=== PATIENT | female | born 1940 | race Caucasian/White ===

== ENCOUNTER 2019-04-08 02:55 | Inpatient (IN) | payer OTHER, MEDICAID ==
[~2019-04-08] VITALS: Ht 167.6 cm; Wt 68.9 kg
[2019-04-08 05:06] LABS: Basophils # (auto) 0.1 uL; Basophils % (auto) 1.1 % (0.0-2.0); Eosinophils # (auto) 0.2 uL; Eosinophils % (auto) 3.4 % (0.0-7.0); Hematocrit 42.2 % (36.0-46.0); Hemoglobin 14.3 g/dL (12.2-16.2); Lymphocytes % (auto) 15.5 % (10.0-50.0); Mean Corpuscular Hemoglobin 30.2 pg (28.0-32.0); Mean Corpuscular Hgb Conc. 33.8 g/dL (32.0-36.0); Mean Corpuscular Volume 89.5 fL (80.0-100.0); Monocytes # (auto) 0.5 uL; Neutrophils # (auto) 4.8 uL; Platelet Count (auto) 178 10^3/uL (140-450); Red Blood Cells 4.72 10^6/uL (4.0-5.20); Red Cell Distribution Width 13.5 % (11.8-14.3); White Blood Cell 6.6 10^3/uL (4.4-10.8)
[2019-04-08 05:17] LABS: Albumin 3.3 g/dL (3.4-5.0); BUN/Creatinine Ratio 14.9; Calcium 9.2 mg/dL (8.5-10.1); Potassium 3.8 mmol/L (3.5-5.1)
[2019-04-08 05:18] LABS: Bilirubin, Total 0.8 mg/dL (0.2-1.0); Total Protein 6.6 g/dL (6.4-8.2)
[2019-04-08 05:57] LABS: Amphetamine Screen, Urine NEGATIVE (NEGATIVE); Barbiturate Scree,Urine NEGATIVE (NEGATIVE); Benzodiazephine Screen, Urine NEGATIVE (NEGATIVE); Cannabinoid Screen, Urine NEGATIVE (NEGATIVE); Cocaine Screen, Urine NEGATIVE (NEGATIVE)
[2019-04-08 06:03] LABS: Alcohol, Urine < 3.0 mg/dL (0-5); Opiate Scree,Urine NEGATIVE (NEGATIVE); Phencyclidine Screen, Urine NEGATIVE (NEGATIVE); Urine Bacteria FEW /hpf (None Seen); Urine Blood TRACE /uL (Negative); Urine Hyaline Cast FEW /lpf (0 - 2); Urine Mucus FEW (None Seen); Urine Specific Gravity 1.014 (1.001-1.035); Urine WBC 4 /hpf (0 - 5)
[2019-04-08 06:37] LABS: INR 0.95 (0.9-1.15); Partial Thromboplastin Time 26.1 sec (23.64-32.05)
[2019-04-08] MEDS ORDERED: LORazepam 2MG/ML-1ML VIAL IV PRN ×2 (07:30→20:30)
[2019-04-08] MEDS ORDERED: HYDROcodone-ACET 5/325MG TAB PO PRN (07:30)
[2019-04-08] MEDS ORDERED: DOCUSATE SOD 100 MG CAP PO PRN (07:30)
[2019-04-08] MEDS ORDERED: ACETAMINOPHEN 500 MG TAB PO PRN (07:30)
[2019-04-08] MEDS ORDERED: ONDANSETRON HCL 4 MG/2 ML VIAL IV PRN (07:30)
[2019-04-08] MEDS ORDERED: ALBUTEROL SULF 2.5 MG/0.5ML(0.5%) NEB SOLN NEB PRN (07:45)
--- NOTE | 2019-04-08 09:01 | NUR ---
Telemetry admit from ER ANA HOFF YESSY admitted to Telemetry unit after SBAR received. Patient oriented to Reina Poole, primary RN, unit, room, bed, and unit policies regarding patient care and visiting hours. Patient now on continuous telemetry monitoring, tele box # 7 and telemetry reading on arrival to unit is [id number]. Patient placed on bedside oxygen, weighed by bedscale and encouraged to call if they need something. All questions and concerns addressed, patient verbalized understanding.
[2019-04-08] MEDS ORDERED: METO25TA62 PO (09:25)
[2019-04-08] MEDS ORDERED: ASPI-378 PO (09:25)
[2019-04-08] MEDS ORDERED: IBUP600T27 PO (09:25)
[2019-04-08] MEDS ORDERED: BUSP5TAB51 PO (09:25)
[2019-04-08] MEDS ORDERED: FAM20T PO (09:25)
[2019-04-08] MEDS ORDERED: CHOL20007 PO (09:25)
[2019-04-08] MEDS ORDERED: IRBE300T46 PO (09:25)
[2019-04-08] MEDS ORDERED: ISOS30TA4 PO (09:25)
[2019-04-08] MEDS ORDERED: busPIRone HCL 10 MG TAB PO SCH ×3 (10:00→22:00)
[2019-04-08] MEDS: FAMOTIDINE 20 MG TAB PO SCH ×2 (10:00→22:00)
--- NOTE | 2019-04-08 10:20 | NUR ---
Respiratory note: PT ASSESSED FOR PRN MED NEB TX. TX IS NOT INDICATED AT THIS TIME. PT IS BREATHING COMFORTABLY ON RA. NO SOB NOTED. RR 14, POX 96%, HR 68. B/S ARE CLEAR THROUGHOUT.
[2019-04-08] MEDS: ASPirin-EC 81 mg tab PO SCH (10:21)
[2019-04-08 10:22] VITALS: BP 140/71
[2019-04-08] MEDS: METOPROLOL SUCCINATE XL 50 MG TAB PO SCH ×2 (10:22→22:00)
[2019-04-08 10:25] VITALS: BP 165/66
[2019-04-08] MEDS ORDERED: INFLUENZA QUAD 2019-2020 0.5ml SYRG IM ONE (11:30)
[2019-04-08 17:59] VITALS: BP 167/78
--- NOTE | 2019-04-08 18:00 | NUR ---
BP-194/86 repeated after 15 minutes BP-167/78, paged adoption services manager hospitalist. Waiting for call back. Will continue to monitor.
--- NOTE | 2019-04-08 18:08 | NUR ---
weight caller hospitalist Dr. Garcia returned call, updated on the current condition and latest BP of the patient. Orders received.
[2019-04-08] MEDS: LABETALOL HCL 5 MG/ML ML 20ML VIAL IV PRN ×3 (18:23→23:04)
--- NOTE | 2019-04-08 18:49 | NUR ---
Respiratory note: NO PRN TX GIVEN AT THIS TIME, NOT INDICATED. PT AWAKE AND ALERT, VISITOR AT BEDSIDE. NO SOB NOTED. SPO2 95%, HR 74, RR 18.
--- NOTE | 2019-04-08 19:20 | NUR ---
PATIENT IS ALERT AND ORIENTED X4. SHE IS SITTING UP IN BED, BED RAILS ARE UP>30 DEGREES AND ARE PADDED FOR SEIZURE PRECAUTIONS. PATIENTS SPEECH IS CLEAR. PATIENT DENIES PAIN AT THIS TIME. BEDSIDE TABLE WITHIN REACH, CALL LIGHT WITHIN REACH, PERSONAL BELONGINGS WITHIN REACH. DISCUSSED POC WITH PATIENT AND SON. ALL CONCERNS ADDRESSED. WILL CONTINUE TO MONITOR Q1H AND PRN. BLOOD PRESSURE 153/64 HR 72.
[2019-04-08 20:00] VITALS: BP 157/79
--- NOTE | 2019-04-08 20:00 | NUR ---
KEON ANSARI AT BEDSIDE.
[2019-04-08] MEDS ORDERED: LORazepam 0.5 MG TAB PO PRN (20:30)
[2019-04-08 22:00] VITALS: BP 157/79
--- NOTE | 2019-04-08 23:50 | NUR ---
CONFUSION PATIENT OUT OF BED WALKING TO NURSE'S STATION. CONFUSED. PATIENT CANNOT RECALL WHERE SHE IS AT. PATIENT ASKING "WHAT HAPPENED?" " WHY AM I HERE?" "I WORK HERE". GAIT IS STEADY AT THIS TIME. ASSISTED PATIENT BACK INTO BED, REORIENTED. PATIENT REMAINS CONFUSED. FALL PRECAUTIONS IN PLACE. BED ALARM ON. PATIENT ROOM IS ACROSS FROM FROM NURSING STATION.
[2019-04-09 05:04] VITALS: BP 158/73
--- NOTE | 2019-04-09 05:20 | NUR ---
LAB AT BEDSIDE
[2019-04-09] MEDS: LABETALOL HCL 5 MG/ML ML 20ML VIAL IV PRN (05:26)
[2019-04-09 06:29] LABS: Basophils # (auto) 0.1 uL; Basophils % (auto) 1.1 % (0.0-2.0); Eosinophils # (auto) 0.1 uL; Eosinophils % (auto) 0.9 % (0.0-7.0); Hematocrit 43.9 % (36.0-46.0); Hemoglobin 14.9 g/dL (12.2-16.2); Lymphocytes # (auto) 1.1 uL; Lymphocytes % (auto) 17.4 % (10.0-50.0); Mean Corpuscular Hemoglobin 30.2 pg (28.0-32.0); Mean Corpuscular Volume 88.9 fL (80.0-100.0); Monocytes # (auto) 0.3 uL; Monocytes % (auto) 5.1 % (0.0-12.0); Neutrophils # (auto) 4.6 uL; Neutrophils % (auto) 75.5 % (37.0-80.0); Platelet Count (auto) 196 10^3/uL (140-450); Red Blood Cells 4.94 10^6/uL (4.0-5.20); Red Cell Distribution Width 13.1 % (11.8-14.3); White Blood Cell 6.1 10^3/uL (4.4-10.8)
--- NOTE | 2019-04-09 07:10 | NUR ---
CLOSING NOTE- NOC SHIFT PATIENT IS ALERT AND ORIENTED X4. PATIENT RECALLS SPEAKING WITH DR HERBERT LAST NIGHT AND REMEMBERS PROCEDURES SCHEDULED FOR TODAY. PATIENT STATES THAT SHE WANTS TO DC EARLY IN THE DAY AND FOLLOW UP WITH HER OWN DOCTOR SO THAT HER FAMILY CAN GET BACK HOME TO [place] WHERE SHE IS FROM. ENDORSED CARE TO DAY SHIFT NURSE CAYETANO BONILLA.
--- NOTE | 2019-04-09 07:25 | NUR ---
Respiratory note: PT DOES NOT PRESENT WITH ANY SIGNS OF RESPIRATORY DISTRESS AT THIS TIME. SPO2 94% ON RA HR 84 RR 16 BS CLEAR HHN TX NOT INDICATED AT THIS TIME. WILL CONTINUE TO MONITOR.
--- NOTE | 2019-04-09 07:35 | NUR ---
NEUROLOGY AT BEDSIDE PATIENT ALERT AND ORIENTED X3 FAMILY AT BEDSIDE. PER DELLA IF MRI RESULTS NEGATIVE PATIENT FREE TO BE DISCHARGED HOME AND HE WILL CALL SON FOR EEG RESULTS. SONS PHONE NUMBER IN CHART ON FACE SHEET
[2019-04-09 08:04] LABS: BUN/Creatinine Ratio 22.4; Calcium 9.4 mg/dL (8.5-10.1); Potassium 4.2 mmol/L (3.5-5.1)
--- NOTE | 2019-04-09 08:25 | NUR ---
EEG COMPLETED AT BEDSIDE. CHAD CERNA.
[2019-04-09 09:00] VITALS: BP 160/77
[2019-04-09 09:23] LABS: Folate (Folic Acid) > 24.00 ng/mL (5.38-24)
[2019-04-09] MEDS: FAMOTIDINE 20 MG TAB PO SCH (09:30)
[2019-04-09] MEDS: ASPirin-EC 81 mg tab PO SCH (09:30)
[2019-04-09] MEDS: METOPROLOL SUCCINATE XL 50 MG TAB PO SCH (09:31)
[2019-04-09] MEDS ORDERED: busPIRone HCL 10 MG TAB PO SCH (10:00)
[2019-04-09 11:46] VITALS: BP 160/77
--- NOTE | 2019-04-09 12:23 | NUR ---
DISCHARGE NOTE PATIENT ALERT AND ORIENTED X4 AT THIS TIME AND FAMILY AT BEDSIDE. ALL DISCHARGE INSTRUCTIONS GIVEN ALL QUESTIONS/ CONCERNS ADDRESSED. PATIENT DENIES ANY PAIN, SOB OR ANY DISTRESS AT THIS TIME. TELE BOX REMOVED CLEANED AND SENT TO ICU. IV REMOVED USING ASEPTIC TECHNIQUE CATHETER INTACT PRESSURE DRESSING APPLIED PATIENT TOLERATED WELL. PATIENT ASSISTED TO PERSONAL VEHICLE USING WHEELCHAIR.
== END 2019-04-09 15:06 | disposition home or self-care (01) | DRG 100 ==
LOC: EDBD 02:55 → ER 03:05 → TELE 03:06 → TELE-EAST 09:01
PROVIDERS: ADMIT Nurse Practitioner Family; ATTEND Internal Medicine
DX: G40.409 Other generalized epilepsy and epileptic syndromes, not intractable, without status epilepticus (principal); G93.41 Metabolic encephalopathy; E44.1 Mild protein-calorie malnutrition; I10 Essential (primary) hypertension; I25.10 Atherosclerotic heart disease of native coronary artery without angina pectoris; E11.9 Type 2 diabetes mellitus without complications; E78.5 Hyperlipidemia, unspecified; F02.80 Dementia in other diseases classified elsewhere, unspecified severity, without behavioral disturbance, psychotic disturbance, mood disturbance, and anxiety; F41.9 Anxiety disorder, unspecified; G30.9 Alzheimer's disease, unspecified; H53.2 Diplopia; J44.9 Chronic obstructive pulmonary disease, unspecified; Z79.899 Other long term (current) drug therapy; Z83.3 Family history of diabetes mellitus; Z87.891 Personal history of nicotine dependence; Z90.710 Acquired absence of both cervix and uterus; Z95.5 Presence of coronary angioplasty implant and graft; Z90.49 Acquired absence of other specified parts of digestive tract; Z68.24 Body mass index [BMI] 24.0-24.9, adult
CPT/HCPCS: 36415; 70450; 70551; 80048; 80053; 80307; 81001; 82607; 82746; 84443; 85025; 85610; 85730; 93005; 94761; 95819; G0378

== ENCOUNTER 2023-04-25 08:35 | Inpatient (IN) | payer OTHER, MEDICAID ==
[~2023-04-25] VITALS: Ht 167.6 cm; Wt 72.2 kg
[~2023-04-25 08:35] MED LIST: ASPI-378 PO; BUSP5TAB51 PO; CHOL20007 PO; FAMO20TA10 PO; IBUP-1454 PO; IRBE300T43 PO; ISOS1TAB28 PO; METO25TA93 PO
[2023-04-25] MEDS ORDERED: PANTOPRAZOLE 40mg/50ML NS AE 50 ML IV ONE (09:15)
[2023-04-25 09:53] LABS: Basophils # (auto) 0.1 10 ^3/uL (0-0.2); Basophils % (auto) 1.3 % (0.0-2.0); Eosinophils # (auto) 0.3 10 ^3/uL (0-0.8); Eosinophils % (auto) 5.1 % (0.0-7.0); Hematocrit 41.7 % (36.0-46.0); Hemoglobin 13.8 g/dL (12.2-16.2); Lymphocytes # (auto) 1.5 10 ^3/uL (0.4-5.4); Lymphocytes % (auto) 22.4 % (10.0-50.0); Mean Corpuscular Hemoglobin 29.5 pg (28.0-32.0); Mean Corpuscular Hgb Conc. 33.2 g/dL (32.0-36.0); Mean Corpuscular Volume 88.9 fL (80.0-100.0); Monocytes # (auto) 0.6 10 ^3/uL (0-1.3); Monocytes % (auto) 8.4 % (0.0-12.0); Neutrophils # (auto) 4.3 10 ^3/uL (1.6-8.6); Neutrophils % (auto) 62.8 % (37.0-80.0); Red Blood Cells 4.68 10^6/uL (4.0-5.20); White Blood Cell 6.8 10^3/uL (4.4-10.8)
[2023-04-25 10:35] LABS: Alanine Aminotransferase 21 U/L (7-40); Albumin 4.1 g/dL (3.2-4.8); Alkaline Phosphatase 58 U/L (46-116); Anion Gap 8 (5-15); Aspartate Aminotransferase 13 U/L (13-40); BUN/Creatinine Ratio 15.3 (10.0-20.0); Bilirubin, Total 0.8 mg/dL (0.2-1.0); Blood Urea Nitrogen 11 mg/dL (9-23); Calcium 9.7 mg/dL (8.5-10.1); Carbon Dioxide 24 mmol/L (20-30); Chloride 106 mmol/L (98-107); Glucose 172 mg/dL (74-106); Potassium 4.2 mmol/L (3.5-5.1); Sodium 138 mmol/L (136-145); Total Protein 6.6 g/dL (5.7-8.2)
[2023-04-25 10:54] LABS: INR 0.96 (0.9-1.15); Prothrombin Time 10.1 sec (9.3-11.8)
[2023-04-25] MEDS ORDERED: SODIUM CHLORIDE 0.9% 1,000 ML IV ONE (12:00)
[2023-04-25] MEDS ORDERED: PIPERACILLIN-TAZOB 3.375GM 100 ML IV ONE (12:00)
[2023-04-25 12:12] LABS: Magnesium 1.8 mg/dL (1.6-2.6)
[2023-04-25] MEDS ORDERED: MORPHINE SULFATE INJ 2 MG/ml SYRG IV PRN (13:00)
[2023-04-25] MEDS ORDERED: NITROGLYCERIN 0.4 MG SL TAB SL PRN (13:00)
[2023-04-25 13:34] LABS: Basophils # (auto) 0.1 10 ^3/uL (0-0.2); Basophils % (auto) 1.3 % (0.0-2.0); Eosinophils # (auto) 0.2 10 ^3/uL (0-0.8); Eosinophils % (auto) 2.8 % (0.0-7.0); Hematocrit 43.4 % (36.0-46.0); Hemoglobin 14.2 g/dL (12.2-16.2); Lymphocytes # (auto) 2.1 10 ^3/uL (0.4-5.4); Lymphocytes % (auto) 24.2 % (10.0-50.0); Mean Corpuscular Hemoglobin 29.8 pg (28.0-32.0); Mean Corpuscular Hgb Conc. 32.8 g/dL (32.0-36.0); Mean Corpuscular Volume 90.8 fL (80.0-100.0); Monocytes # (auto) 0.7 10 ^3/uL (0-1.3); Monocytes % (auto) 8.2 % (0.0-12.0); Neutrophils # (auto) 5.4 10 ^3/uL (1.6-8.6); Neutrophils % (auto) 63.5 % (37.0-80.0); Nucleated Red Blood Cells % 0.2 %; Red Blood Cells 4.78 10^6/uL (4.0-5.20); Red Cell Distribution Width 13.2 % (11.8-14.3); White Blood Cell 8.5 10^3/uL (4.4-10.8)
[2023-04-25 13:41] LABS: Chloride 106 mmol/L (98-107); Potassium 4.2 mmol/L (3.5-5.1); Sodium 138 mmol/L (136-145)
[2023-04-25 13:42] LABS: Anion Gap 9 (5-15); Carbon Dioxide 23 mmol/L (20-30)
[2023-04-25 13:43] LABS: Calcium 9.8 mg/dL (8.7-10.4)
[2023-04-25 13:47] LABS: BUN/Creatinine Ratio 17.1 (10.0-20.0); Blood Urea Nitrogen 12 mg/dL (9-23); Glucose 146 mg/dL (74-106)
[2023-04-25 13:48] LABS: Magnesium 1.9 mg/dL (1.6-2.6)
[2023-04-25 14:20] VITALS: PULSE 88; RESP 18; O2SAT 99
[2023-04-25] MEDS: metroNIDAZOLE 500MG/100ML 100 ML IV ONE ×2 (14:26→15:06)
[2023-04-25] MEDS ORDERED: hydrALAZINE HCL 20 MG/ML VL IV PRN (19:30)
[2023-04-25 23:53] VITALS: BP 173/68; PULSE 85; RESP 20; TEMP 97.5; O2SAT 98
[2023-04-26] MEDS: metroNIDAZOLE 500MG/100ML 100 ML IV SCH ×4 (00:09→21:30)
[2023-04-26] MEDS: PANTOPRAZOLE 40 MG/10 ML VIAL INJ IV SCH ×3 (00:14→21:30)
[2023-04-26 01:03] VITALS: BP 126/64; O2SAT 96
[2023-04-26 05:00] VITALS: BP 139/62; PULSE 98; RESP 19; TEMP 97.7; O2SAT 97
[2023-04-26 07:51] LABS: Anion Gap 10 (5-15); Calcium 9.2 mg/dL (8.5-10.1); Carbon Dioxide 24 mmol/L (20-30); Chloride 106 mmol/L (98-107); Potassium 4.2 mmol/L (3.5-5.1); Sodium 140 mmol/L (136-145)
[2023-04-26 07:56] LABS: Glucose 165 mg/dL (74-106)
[2023-04-26 07:57] LABS: BUN/Creatinine Ratio 29.3 (10.0-20.0); Blood Urea Nitrogen 17 mg/dL (9-23); LDL Cholesterol 84 mg/dL (< 100); Triglycerides 134 mg/dL (< 150)
[2023-04-26 07:58] LABS: Cholesterol 176 mg/dL (< 200)
[2023-04-26 07:59] LABS: HDL Cholesterol 69 mg/dL (40-59)
[2023-04-26 08:00] VITALS: BP 145/56; PULSE 96; RESP 20; TEMP 98.2; O2SAT 98
[2023-04-26 08:41] LABS: Basophils # (auto) 0.1 10 ^3/uL (0-0.2); Basophils % (auto) 0.9 % (0.0-2.0); Eosinophils # (auto) 0.1 10 ^3/uL (0-0.8); Eosinophils % (auto) 0.9 % (0.0-7.0); Hematocrit 38.2 % (36.0-46.0); Hemoglobin 12.9 g/dL (12.2-16.2); Lymphocytes # (auto) 1.3 10 ^3/uL (0.4-5.4); Lymphocytes % (auto) 17.9 % (10.0-50.0); Mean Corpuscular Hemoglobin 30.3 pg (28.0-32.0); Mean Corpuscular Hgb Conc. 33.7 g/dL (32.0-36.0); Mean Corpuscular Volume 89.8 fL (80.0-100.0); Monocytes # (auto) 0.5 10 ^3/uL (0-1.3); Monocytes % (auto) 6.6 % (0.0-12.0); Neutrophils # (auto) 5.2 10 ^3/uL (1.6-8.6); Neutrophils % (auto) 73.7 % (37.0-80.0); Nucleated Red Blood Cells % 0.1 %; Red Blood Cells 4.26 10^6/uL (4.0-5.20)
[2023-04-26] MEDS: cefTRIAXone 1GM/50ML D5W 50 ML IV SCH (08:48)
[2023-04-26 09:12] LABS: Magnesium 1.5 mg/dL (1.6-2.6)
[2023-04-26 12:00] VITALS: BP 145/67; PULSE 92; RESP 20; TEMP 98.5; O2SAT 98
[2023-04-26 16:00] VITALS: BP 163/72; PULSE 81; RESP 21; TEMP 98.4; O2SAT 98
[2023-04-26 22:00] VITALS: BP 159/69; PULSE 80; RESP 19; TEMP 97.9; O2SAT 97
[2023-04-27 05:00] VITALS: BP 155/84; PULSE 85; RESP 19; TEMP 98.2; O2SAT 95
[2023-04-27] MEDS: metroNIDAZOLE 500MG/100ML 100 ML IV SCH (05:32)
[2023-04-27 06:43] LABS: Basophils # (auto) 0.1 10 ^3/uL (0-0.2); Eosinophils # (auto) 0.1 10 ^3/uL (0-0.8); Eosinophils % (auto) 2.1 % (0.0-7.0); Hematocrit 37.7 % (36.0-46.0); Hemoglobin 12.4 g/dL (12.2-16.2); Lymphocytes # (auto) 1.2 10 ^3/uL (0.4-5.4); Lymphocytes % (auto) 20.6 % (10.0-50.0); Mean Corpuscular Hemoglobin 29.5 pg (28.0-32.0); Mean Corpuscular Hgb Conc. 32.9 g/dL (32.0-36.0); Mean Corpuscular Volume 89.8 fL (80.0-100.0); Monocytes # (auto) 0.5 10 ^3/uL (0-1.3); Monocytes % (auto) 8.3 % (0.0-12.0); Neutrophils # (auto) 3.9 10 ^3/uL (1.6-8.6); Nucleated Red Blood Cells % 0.1 %; Red Blood Cells 4.19 10^6/uL (4.0-5.20); Red Cell Distribution Width 12.7 % (11.8-14.3); White Blood Cell 5.8 10^3/uL (4.4-10.8)
[2023-04-27 07:01] LABS: Anion Gap 9 (5-15); Carbon Dioxide 24 mmol/L (20-30); Chloride 105 mmol/L (98-107); Sodium 138 mmol/L (136-145)
[2023-04-27 07:02] LABS: Calcium 8.9 mg/dL (8.7-10.4)
[2023-04-27 07:06] LABS: Glucose 152 mg/dL (74-106)
[2023-04-27 07:07] LABS: BUN/Creatinine Ratio 14.8 (10.0-20.0); Blood Urea Nitrogen 9 mg/dL (9-23); Magnesium 1.6 mg/dL (1.6-2.6)
[2023-04-27 08:00] VITALS: PULSE 85
[2023-04-27] MEDS ORDERED: DOCUSATE SOD 100 MG CAP PO PRN (08:30)
[2023-04-27 08:36] VITALS: BP 144/58; PULSE 92; RESP 18; TEMP 98.5; O2SAT 98
[2023-04-27] MEDS ORDERED: CIPR500T4 PO (09:56)
[2023-04-27] MEDS ORDERED: METR-344 PO (09:56)
[2023-04-27] MEDS: PANTOPRAZOLE 40 MG/10 ML VIAL INJ IV SCH (10:26)
[2023-04-27] MEDS: cefTRIAXone 1GM/50ML D5W 50 ML IV SCH (10:26)
[2023-04-27 11:12] VITALS: BP 173/68; TEMP 36.9
[2023-04-27 13:05] VITALS: BP 145/66; PULSE 88; RESP 20; TEMP 98; O2SAT 98
== END 2023-04-27 15:37 | disposition home or self-care (01) | DRG 379 ==
LOC: ER 08:35 → EDBD 08:35 → OVERFLOW 12:52 → WEST WING 23:16
PROVIDERS: ADMIT Internal Medicine Pulmonary Disease; ATTEND Student in an Organized Health Care Education/Training Program
DX: K57.33 Diverticulitis of large intestine without perforation or abscess with bleeding (principal); I25.10 Atherosclerotic heart disease of native coronary artery without angina pectoris; K76.0 Fatty (change of) liver, not elsewhere classified; F03.90 Unspecified dementia, unspecified severity, without behavioral disturbance, psychotic disturbance, mood disturbance, and anxiety; E11.9 Type 2 diabetes mellitus without complications; J44.9 Chronic obstructive pulmonary disease, unspecified; I10 Essential (primary) hypertension; Z90.710 Acquired absence of both cervix and uterus; Z90.49 Acquired absence of other specified parts of digestive tract; Z98.61 Coronary angioplasty status; Z87.891 Personal history of nicotine dependence
CPT/HCPCS: 36415; 74176; 80048; 80053; 80061; 83036; 83605; 83735; 83880; 84484; 85025; 85610; 86850; 86900; 86901; 87040; 93005; 93306; 96365; 96366; C9113; G0378; J0696; J2543; J3490